=== PATIENT | male | born 1980 | race Caucasian/White ===

== ENCOUNTER → 2017-01-01 | Outpatient (CLI) | payer BC ==
[~2017-01-01] MED LIST: AMIT50TA3 PO; BENZ100C6 PO; CHN5 PO; CITA40TA12 PO; CLIN300C2 PO; GABA-1218 PO; GUAISYP4 PO; KETOCONAZOLE 2% TOP; LISI10TA PO; METH10TA PO; OMEP20CA59 PO; ZOLP10TA PO
--- NOTE | 2017-01-01 10:34 | DIAGNOSTIC IMAGING REPORT ---
AP STANDING VIEW OF BOTH KNEES; 2 VIEWS LEFT KNEE CLINICAL HISTORY: Left knee injury. FINDINGS: An AP standing view of both knees with lateral and sunrise views of the left knee are obtained. No prior studies are available for comparison at the time of dictation. The skeletal structures are well mineralized. No fracture is identified. The joint spaces of the left knee appear well-maintained. There is no large joint effusion. Mild soft tissue swelling is present around the left knee. Survey images of the right knee on the frontal view show no abnormality. IMPRESSION: Mild soft tissue swelling with no acute bony abnormality identified in the left knee. Electronically signed by: Rafael Espinoza M.D. 01/01/2017 10:32 AM Dictated Date/Time: 01/01/2017 10:30 AM
== END | disposition home or self-care (01) ==
LOC: C.RAD 10:01
PROVIDERS: ATTEND Family Medicine
DX: S89.92XA Unspecified injury of left lower leg, initial encounter (principal); X58.XXXA Exposure to other specified factors, initial encounter

== ENCOUNTER → 2017-02-26 | Outpatient (CLI) | payer BC ==
--- NOTE | 2017-02-26 13:51 | DIAGNOSTIC IMAGING REPORT ---
MRI LEFT KNEE NO CONTRAST CLINICAL HISTORY: Left medial knee pain COMPARISON STUDY: Conventional radiographic study dated 01/01/2017 FINDINGS: Wheezing was performed in the sagittal, coronal, and axial planes. There are no areas of marrow replacement to indicate neoplasm. There are no areas of marrow edema to indicate occult fracture or bone bruise. The patellar retinacular structures appear intact. The quadriceps and patellar tendons appear intact. The anterior and posterior cruciate ligaments appear intact. No meniscal tears are visualized. The medial and lateral collateral ligaments appear intact. IMPRESSION: No evidence of internal derangement. Electronically signed by: Jozef Light M.D. 02/26/2017 1:49 PM Dictated Date/Time: 02/26/2017 1:47 PM
== END | disposition home or self-care (01) ==
LOC: C.MRI 12:31
PROVIDERS: ATTEND Family Medicine
DX: S89.92XA Unspecified injury of left lower leg, initial encounter (principal); X58.XXXA Exposure to other specified factors, initial encounter